=== PATIENT | male | born 1970 | race American Indian/Alaskan Native ===

== ENCOUNTER 2018-04-02 14:32 | Emergency (ER) | payer SELFPAY ==
--- NOTE | 2018-04-02 14:42 | Emergency Department Report ---
Chief Complaint: Urogenital-Male Stated Complaint: STD CHECK Time Seen by Provider: 04/02/18 14:41 - HPI History of Present Illness: CO DYSURIA; CONCERN FOR STD PENILE DRAINAGE WHITE NO BLOOD IN URINE/ NO ABD PAIN 1 FEMALE PARTNER SYMPTOMS SINCE THURSDAY PMH NONE RX NONE PCP NONE PSH NONE CIG ETOH MSE COMPLETED NO LIFE THREAT MSE screening note: Focused history and physical exam performed. Due to findings the following was ordered: ED Disposition for MSE Condition: Stable
[2018-04-02 14:43] VITALS: BP 123/73
[2018-04-02] MEDS ORDERED: FLAGYL PO ONE (15:44)
[2018-04-02] MEDS ORDERED: ZITHROMAX PO ONE (15:44)
[2018-04-02] MEDS ORDERED: ROCEPHIN IM ONE (15:44)
[2018-04-02] MEDS ORDERED: XYLOCAINE 1% MPF 5 mL INFILTRATI ONE (15:44)
[2018-04-02 15:49] LABS: Bilirubin,Urine NEG (Negative); Blood,Urine SM (Negative); Color,Urine Yellow (Yellow); Mucus,Urine FEW /HPF
--- NOTE | 2018-04-02 16:00 | Emergency Department Report ---
ED Male HPI - General Chief complaint: Urogenital-Male Stated complaint: STD CHECK Time Seen by Provider: 04/02/18 14:41 Source: patient Mode of arrival: Ambulatory Limitations: No Limitations - History of Present Illness Initial comments: Patient is a 48 her [place] male who is requesting a check for STDs. Patient states for the past 23 days he's had dysuria and a penile discharge. Patient also states he has some mild discomfort in his testicles as well. Patient has one partner is not using any protection. Patient denies any fevers chills n ausea vomiting at this time. - Related Data Previous Rx's Medication Instructions Recorded Last Taken Type Cyclobenzaprine [Flexeril 10mg] 10 mg PO TID PRN #14 tablet 07/14/13 Unknown Rx HYDROcodone/APAP 5-325 [[place] 1 each PO Q6HR PRN #10 tablet 07/14/13 Unknown Rx 5-325 mg TAB] Ibuprofen [Motrin] 800 mg PO Q8H PRN #20 tablet 07/14/13 Unknown Rx Ciprofloxacin HCl [Cipro] 500 mg PO BID #14 tablet 04/02/18 Unknown Rx Allergies Allergy/AdvReac Type Severity Reaction Status Date / Time No Known Allergies Allergy Unverified 07/14/13 16:21 ED Review of Systems ROS: Stated complaint: STD CHECK Other details as noted in HPI Comment: All other systems reviewed and negative ED Past Medical Hx - Past Medical History Previous Medical History?: No - Surgical History Past Surgical History?: No - Social History Smoking Status: Current Every Day Smoker Substance Use Type: Alcohol - Medications Home Medications: Home Medications Medication Instructions Recorded Confirmed Last Taken Type Cyclobenzaprine [Flexeril 10mg] 10 mg PO TID PRN #14 tablet 07/14/13 Unknown Rx HYDROcodone/APAP 5-325 [[place] 1 each PO Q6HR PRN #10 tablet 07/14/13 Unknown Rx 5-325 mg TAB] Ibuprofen [Motrin] 800 mg PO Q8H PRN #20 tablet 07/14/13 Unknown Rx Ciprofloxacin HCl [Cipro] 500 mg PO BID #14 tablet 04/02/18 Unknown Rx ED Physical Exam - General Limitations: No Limitations General appearance: alert, in no apparent distress - Head Head exam: Present: atraumatic, normocephalic - Eye Eye exam: Present: normal appearance - ENT ENT exam: Present: mucous membranes moist - Neck Neck exam: Present: normal inspection - Respiratory Respiratory exam: Present: normal lung sounds bilaterally. Absent: respiratory distress - Cardiovascular Cardiovascular Exam: Present: regular rate, normal rhythm. Absent: systolic murmur, diastolic murmur, rubs, gallop - GI/Abdominal GI/Abdominal exam: Present: soft, normal bowel sounds - Rectal Rectal exam: Present: deferred - exam: Present: urethral discharge. Absent: testicular tenderness, scrotal swelling - Extremities Exam Extremities exam: Present: normal inspection - Back Exam Back exam: Present: normal inspection - Neurological Exam Neurological exam: Present: alert, oriented X3 - Psychiatric Psychiatric exam: Present: normal affect, normal mood - Skin Skin exam: Present: warm, dry, intact, normal color. Absent: rash ED Course Vital Signs 04/02/18 14:41 Temperature 97.9 F Pulse Rate 96 H Respiratory 18 Rate Blood Pressure 123/73 O2 Sat by Pulse 98 Oximetry ED Medical Decision Making - Lab Data Lab Results 04/02/18 Range/Units 15:29 Urine Color Yellow (Yellow) Urine Turbidity Slightly-cloudy (Clear) Urine pH 6.0 (5.0-7.0) Ur Specific [place] 1.025 (1.003-1.030) Urine Protein 30 mg/dl (Negative) mg/dL Urine Glucose (UA) Neg (Negative) mg/dL Urine Ketones Neg (Negative) mg/dL Urine Blood Sm (Negative) Urine Nitrite Neg (Negative) Urine Bilirubin Neg (Negative) Urine Urobilinogen 2.0 (<2.0) mg/dL Ur Leukocyte Esterase Lg (Negative) Urine WBC (Auto) 159.0 H (0.0-6.0) /HPF Urine RBC (Auto) 14.0 (0.0-6.0) /HPF Urine Mucus Few /HPF Critical care attestation.: If time is entered above; I have spent that time in minutes in the direct care of this critically ill patient, excluding procedure time. ED Disposition Clinical Impression: Urethritis Disposition: TO HOME OR SELFCARE Is pt being admited?: No Does the pt Need Aspirin: No Condition: Stable Instructions: Nonspecific Urethritis in Men (ED) Referrals: NOY MARTINES MD [Primary Care Provider] - 3-5 Days Forms: STI Treatment and Prevention Time of Disposition: 16:00
== END 2018-04-02 16:05 | disposition home or self-care (01) ==
LOC: ED 14:32
DX: N34.2 Other urethritis (principal); F17.200 Nicotine dependence, unspecified, uncomplicated
CPT/HCPCS: 81001; 87591; 96372; 99283; J0696